=== PATIENT | male | born 1980 | race Caucasian/White ===

== ENCOUNTER 2016-08-20 16:01 | Emergency (ER) | payer OTHER ==
[~2016-08-20 16:01] MED LIST: ALBUTEROL HFA INH; AUGMENTIN875 M1 PO; BACLOFEN10 MG PO; CIPRO PO; CLARITIN10 M3 PO; HYDROCODON-ACE1 EAC5; HYDROCODON-ACE1 EAC5 PO; IBUPROFEN800 MG PO; LORTAB 10-3251 EACH PO; LORTAB 101 TAB 10/5 PO; MEDROL PO; MOBIC15 MG PO; NEURONTIN PO; PHENERGAN PO; PREDNISONE PO; PROMETHAZINE D118 ML PO; VICODIN 5/500 T1 TAB PO
== END 2016-08-20 16:28 | disposition home or self-care (01) ==
LOC: SED 16:01
DX: B07.0 Plantar wart (principal); F17.210 Nicotine dependence, cigarettes, uncomplicated; Z98.890 Other specified postprocedural states; Z79.899 Other long term (current) drug therapy
CPT/HCPCS: 99282; 99283